=== PATIENT | male | born 1945 | race Caucasian/White ===

== ENCOUNTER → 2024-05-28 12:31 | Outpatient (REF) | payer MEDICARE, OTHER, SELFPAY | LOC: RCS 12:31 | PROVIDERS: ATTENDING PHYSICIAN Internal Medicine Critical Care Medicine; FAMILY PHYSICIAN Family Medicine | DX: R06.02 Shortness of breath (principal) | CPT/HCPCS: 93306 ==

== ENCOUNTER 2024-07-29 19:55 | Inpatient (IN) | payer MEDICARE, OTHER, SELFPAY ==
[2024-07-29] VITALS (7 sets, daily range): BP systolic 102–124; BP diastolic 57–83; BMI 22.5
--- NOTE | 2024-07-29 15:23 | ED.GENMED ---
History of Present Illness
General
Chief Complaint: Breathing Problem
Source: patient
Exam Limitations: none
Time Seen by Provider: 07/29/24 15:06
Nursing documentation reviewed up to this point in time: agreed with
History of Present Illness
History of Present Illness:
Patient to eD with complaint of SOB, worsening cough. Symptoms started 1 week ago and continue to worsen. No home O2. Smoker - reports <1/2ppd. On daily dose of 10mg prednisone. He increased it to 30 mg for the past 3 days without improvement
in symptoms. Unable to lie in bed. Reports weakness, unable to walk even short distances due to SOB. Broought to ED by family for eval. Denies fever/chills, n/v/d.
Past History
Past History
ED Past Medical History: COPD and HTN
ED Past Surgical History: Orthopedic
Social History
Tobacco: Smoker (1/2ppc)
Alcohol: Daily (vodka and water)
Drug: None
Personal:
Review of Systems
Review of Systems
Allergies reviewed?: Yes
All Other Systems: ROS reviewed and negative except as documented in HPI and ROS
Constitutional: Reports fatigue and sleep disturbance
EENT: Reports no symptoms
Respiratory: Reports cough and trouble breathing
Cardiac: Reports no symptoms
ABD/GI: Reports anorexia
: Reports no symptoms
Musculoskeletal: Reports no symptoms
Skin: Reports no symptoms
Neurological: Reports weakness
Psychiatric: Reports no symptoms
Phy Exam
General Physical Exam
General Presentation: moderate distress
General age: appears stated age
General Skin: warm and dry
General Habitus: normal
General Mental: alert
Cardiovascular Exam
Cardiovascular Exam: regular rate/rhythm and no edema
Pulmonary Exam
Pulmonary Exam: chest non tender and decreased breath sounds (MICHAEL)
Oxygen Status: oxygen 2 liters via NC
Cough: coarse cough and hacking cough
Breath Sounds: Wheeze: generalized
Gastrointestinal Exam
Gastrointestinal Exam: normal bowel sounds, non tender and soft
Musculoskeletal Exam
Musculoskeletal Exam: full ROM and neuro vasc intact
Skin Exam
Skin Exam: normal color, warm/dry and no rash
Psychiatric Exam
Psychiatric Exam: normal mood/affect
Scores
Heart Failure Risk
Heart Failure Risk Score: Not Applicable
Course
Orders/Labs/Results
Orders:
Orders
07/29/24 Dinner
Regular
At Your Request: Full Participation
07/29/24 15:20
Dexamethasone Sod Phosphate [Decadron] 10 mg IV NOW STA
Ipratropium/Albuterol Sulfate [Duoneb] 3 ml INH R NOW STA
07/29/24 15:21
CR Chest - 2 Views Urgent
Comment:
Reason For Exam: SOB, cough
07/29/24 15:23
0.9% Sodium Chloride 1000 ml [Nss] 1,000 ml IV BOLUS
07/29/24 16:04
COVID-19 Antigen Urgent
Source: Nasal Swab
Complete Blood Count/With Diff Urgent
Comprehensive Metabolic Panel Urgent
Influenza A+B Rapid Molecular Urgent
ILENE Source: Nasal Swab
Specimen Description:
07/29/24 17:38
CT Chest With Iv Contrast Urgent
Comment:
Reason For Exam: SOB, mass left hilar region
07/29/24 18:48
Cefepime HCl [Maxipime] 2,000 mg IV NOW STA
07/29/24 19:13
Admit/Transfer Patient As Directed
Co-Sign Provider:
Level of Care: Inpatient admission
Assign to:: Medical/Surgical
Physician / Group: hospitalist
Diagnosis: pneumonia,
Reason for Hospitalization: pneumonia
Expected length of stay greater than two midnights?: Yes
ELOS- Estimated Length of Stay in days: 2
I certify the patient meets the requirements for IP care: Yes
Code Status As Directed
Resuscitation Status: Full Code
PRN Pain Medication Management As Directed
May give lesser potent ordered pain med per pt: Yes
preference::
Protocol:: Medication orders for pain may be administered in a
manner that supports deferring to patient preference
when the pt is:
- Requesting an ordered lesser potent pain medication.
Least to most potent pain medications are defined
as: acetaminophen < NSAID < tramadol < opioids
(morphine, oxycodone, hydromorphone).
- Requesting a lesser dose of the same medication IF
ORDERED.
- Requesting a less intrusive route of administration
if both routes are prescribed by the provider (PO <
IV).
07/29/24 20:00
Vitamin B Complex with C [B COMPLEX w/VITAMIN C] 1 caplet PO BID
07/29/24 20:30
Acetaminophen [Tylenol] 650 mg PO Q6HPRN PRN
Docusate Sodium [Colace] 100 mg PO BIDPRN PRN
Guaifenesin/Codeine Solution [Robitussin AC] 5 ml PO Q4HPRN PRN
Ipratropium/Albuterol Sulfate [Duoneb] 3 ml INH R Q4HPRN PRN
Ondansetron Injectable [Zofran] 4 mg IV Q6HPRN PRN
07/29/24 20:30
PULMONARY CONSULT Routine
Consulting Provider: Maurice Jacinto
Was physician already notified: Yes
Reason for consult: left upper lobe pna/post obstructive with new mass
Respiratory Culture/Gram Stain Routine
ILENE Source: Sputum
Specimen Description:
Activity As Directed
Activity Level: Out of Bed-Early Mobility
Intake/ Output As Directed
Frequency: Per unit guidelines
Vital Signs As Directed
Frequency: Per unit guidelines
Weight As Directed
Frequency: Once
Comment: on admission
Pulse Ox/cont/shift [RESP] Routine
Quantity: 1
Smoking Cessation Counseling [RESP] Routine
Pt Eval And Treat Routine
Activity Level: With Assistance
DX Deep Vein Thrombosis Video Routine
07/29/24 20:42
Legionella Urinary Antigen Routine
ILENE Source: Urine
Specimen Description:
07/29/24 22:00
Zinc 50mg (Zinc Sulfate 220mg) [Zinc] 50 mg PO HS
07/30/24 06:00
Basic Metabolic Panel IN AM
Complete Blood Count/No Diff IN AM
07/30/24 08:00
Ascorbic Acid [Vitamin C] 1,000 mg PO BID
Budesonide/Formoterol 160/4.5 [Symbicort 160/4.5 Mcg Inhaler] 2 puff INH R BID
Cefepime HCl [Maxipime] 2,000 mg IV Q12H
Cholecalciferol (Vitamin D3) [VITAMIN D3 (cholecalciferol)] 50 mcg PO DAILY
Nicotine [Nicoderm Transdermal] 21 mg TRANSDERM DAILY
Prednisone [Deltasone] 40 mg PO DAILY
07/30/24 18:00
Enoxaparin Sodium [Lovenox] 40 mg SC QPM
Abnormal Lab Results
07/29/24
16:04
WBC 20.9 H 10^3/uL
(4.8-10.8)
RBC 4.33 L 10^6/uL
(4.70-6.10)
Abs Immat Gran (auto) 0.1 H 10^3/uL
(0-0.05)
Absolute Neuts (auto) 17.9 H 10^3/uL
(1.4-6.5)
Absolute Monos (auto) 1.3 H 10^3/uL
(0.1-0.6)
Immature Gran % 0.6 H %
(0-0.5)
Neutrophils % 85.8 H %
(42.2-75.2)
Lymphocytes % 7.4 L %
(20.5-51.1)
Carbon Dioxide 21 L mmol/L
(22-30)
BUN 51 H mg/dl
(9-20)
Creatinine 1.4 H mg/dL
(0.7-1.3)
Glucose 140 H mg/dl
(70-99)
AST 131 H U/L
(17-59)
ALT 113 H U/L
(0-50)
Alkaline Phosphatase 179 H U/L
(38-126)
07/29/24 16:04
07/29/24 16:04
Vital Signs
Initial and Last Documented VS:
Initial Vital Signs
Temp Pulse Resp BP Pulse Ox
98.4 F 95 20 114/68 92
07/29/24 14:17 07/29/24 14:17 07/29/24 14:17 07/29/24 14:17 07/29/24 14:17
Last Documented Vital Signs
Temp Pulse Resp BP Pulse Ox
98.0 F 87 19 102/60 92
07/29/24 22:40 07/29/24 22:40 07/29/24 22:40 07/29/24 22:40 07/29/24 22:40
*Radiology
Radiology exam reviewed: radiology read reviewed
*Pulse Oximetry
Patient hypoxic: yes
*Critical Care Note
Total Time (30-74mins, 75-104mins- exclusive of procedures): Not Applicable
Update Note
Update Note:
Ct report reviewed. left hilar mass - high concern for carcinoma, pneumonia. Discussed findings with patient. WIll admit to hospitalist. Antibiotics started in dept.
ED Attending Note
-
Portions of this chart may have been created with voice recognition software.� Occasional wrong word or��sound alike� substitutions may have occurred due to the inherent limitations of voice recognition software.
Discharge Plan
Departure
Patient Disposition: Admit
Date of Disposition: 07/29/24
Time of Disposition: 18:47
Presentation/result/management discussed w/ accepting MD/DO: Hospitalist
Patient with high blood pressure during this ER visit?: Yes
Condition: Fair
Covid-19: Not Applicable
Discharge Problem:
Hilar mass, Pneumonia
Interventions
Interventions:
*Risk Screen - Suicide Last Done: 07/29/24 20:44
*General Assessment Last Done: 07/29/24 15:55
*Neglect/Abuse Screening Last Done: 07/29/24 15:55
ED- Fall Risk Assessment Last Done: 07/29/24 15:55
*ED COVID-19 Vaccine History Last Done: 07/29/24 20:44
*Nursing Disposition Last Done: 07/29/24 20:33
ED- Cardiac Assessment Last Done: 07/29/24 15:55
ED- Pulmonary Assessment Last Done: 07/29/24 15:55
Discharge Date and Time
Discharge Date/Time: 07/29/24 20:34
[2024-07-29] MEDS: DUONEB 3 ML INH (15:50)
[2024-07-29] MEDS: NSS 1000 IV (16:12)
[2024-07-29] MEDS: DECADRON 10 MG IV (16:13)
[2024-07-29 16:28] LABS: % Basophils 0.1 % (0-2); % Immature Granulocytes 0.6 % (0-0.5); % Lymphocytes 7.4 % (20.5-51.1); % Monocytes 6.1 % (1.7-9.3); % Neutrophils 85.8 % (42.2-75.2); Absolute Immature Granulocytes 0.1 10^3/uL (0-0.05); Absolute Lymphocytes 1.6 10^3/uL (1.2-3.4); Absolute Monocytes 1.3 10^3/uL (0.1-0.6); Absolute Neutrophils 17.9 10^3/uL (1.4-6.5); Hemoglobin 13.3 g/dL (13.0-18.0); Mean Corp Hgb Conc. 34.1 g/dL (33.0-37.0); Mean Corpuscular Hgb 30.7 pg (27.0-31.0); Mean Corpuscular Volume 90.1 fL (80.0-94.0); Mean Platelet Volume 9.4 fL (7.4-10.4); Nucleated Red Blood Cells % 0 % (-); Platelet Count 340 10^3/uL (130-400); Red Blood Cell Count 4.33 10^6/uL (4.70-6.10); Red Cell Dist. Width 14.1 % (11.5-14.5); White Blood Cell Count 20.9 10^3/uL (4.8-10.8)
[2024-07-29 16:40] LABS: ALT (SGPT) 113 U/L (0-50); AST (SGOT) 131 U/L (17-59); Albumin 3.7 g/dl (3.5-5.0); Alkaline Phosphatase 179 U/L (38-126); Blood Urea Nitrogen 51 mg/dl (9-20); Calcium 9.4 mg/dl (8.4-10.2); Carbon Dioxide 21 mmol/L (22-30); Chloride 102 mmol/L (98-107); Estimated Creatinine Clearance 44 ml/min; Glucose 140 mg/dl (70-99); Sodium 135 mmol/L (135-145); Total Bilirubin 1.1 mg/dl (0.2-1.3); Total Protein 6.3 g/dl (6.3-8.2); eGFR 50.49
[2024-07-29 17:17] LABS: COVID-19 Antigen Negative (Negative)
[2024-07-29] MEDS: MAXIPIME 2000 MG IV (19:01)
--- NOTE | 2024-07-29 19:40 | HPS.HSE ---
Family Physician
-
Family Physician: Mayra Garcia
Chief Complaint
-
cough and shortness of breath.
History of Present Illness
This is an 79-year-old male with past medical history of COPD, hypertension, prior COVID infection who presents to the emergency department with 2 weeks of worsening nonproductive cough and shortness of breath.
Patient reports that he is aspirating and COPD on inhalers at home as well as chronic prednisone 10 mg that was never taper beyond that. He states he has generally been short of breath for a long time but over the last 2 weeks has had significantly
worsening shortness of breath. He tries to have a productive cough but the cough has been nonproductive. Has been no hemoptysis. Reports because wheezing at home. The patient has been on azithromycin for 2 weeks for presumed COPD exacerbation.
He follows with pulmonology (Dr. Mayer) at [facility]. He tells me that he has had a left sided pulmonary nodule since childhood with workup that is been negative. However prior x-ray here in 2007 was negative for any or pulmonary
lesions or nodules. He denies having fevers or chills. He has occasional diarrhea but denies any nausea or vomiting. He denies any lower extremity swelling or calf tenderness. He does note chest pain associated with the cough and he thought he
might of had a rib fracture. Patient reports approximately 70 to 80 pound weight loss over 2 and half months. Reports loss of appetie. He reports night sweats. He continues to smoke approximately half a pack per day and has been over
[id number] smoker.
On arrival in the emergency department the patient was afebrile, blood pressure was 112/75, pulse was 94% on room air. His chest x-ray shows a left upper lobe opacity with left hilar obstructive lesion possible. A CT of the chest shows a 6 cm soft
tissue mass. He has a white count of 20,000, hemoglobin and platelet counts are within normal limits. Chemistry shows a BUN of 51 and a creatinine of 1.4 without priors to compare. Patient had an echocardiogram in May for shortness of breath
which shows a normal EF and possible wall motion changes associated with conduction abnormality.
Medical History
Past Medical History
Past Medical History: Reports COPD and HTN
Past Surgical History: Reports None
Social History
Tobacco: Smoker
Alcohol: None
Drug: None
Personal:
Living: Alone
Employment: Retired
Family History
Family History: Not pertinent
Allergies / Home Medications
Allergies reflects when Allergies were last updated in [employer].
Home Medications with original date entered in [facility]
Allergy/Medication List:
Allergies
Allergy/AdvReac Type Severity Reaction Status Date / Time
Sulfa (Sulfonamide Allergy Swelling Verified 07/29/24 14:17
Antibiotics)
Home Medications
acetylcysteine 600 mg capsule (NAC) 600 mg PO DAILY 07/29/24
albuterol sulfate 90 mcg/actuation aerosol inhaler 2 puff inhalation R Q6HPRN PRN sob 07/29/24
ascorbic acid (vitamin C) 1,000 mg tablet (Vitamin C) 1,000 mg PO BID 07/29/24
azithromycin 250 mg tablet 250 mg PO MOWEFR 07/29/24
cholecalciferol (vitamin D3) 50 mcg (2,000 unit) tablet (Vitamin D3) 50 mcg PO DAILY 07/29/24
fluticasone fur. 200 mcg-umeclid 62.5 mcg-vilant 25 mcg inhalat.powder (Trelegy Ellipta) 1 inh inhalation R DAILY 07/29/24
lisinopril 20 mg-hydrochlorothiazide 12.5 mg tablet 1 tab PO DAILY 07/29/24
naproxen sodium 220 mg tablet (Aleve) 220 mg PO BIDPRN PRN mild pain 07/29/24
potassium 99 mg tablet 400 mg PO DAILY 07/29/24
prednisone 10 mg tablet 10 mg PO DAILY 07/29/24
quercetin 500 mg capsule 500 mg PO DAILY 07/29/24
vitamin B complex 1 tab PO BID 07/29/24
zinc sulfate 50 mg zinc (220 mg) tablet 50 mg PO HS 07/29/24
Review of Systems
-
History Source: Patient
Constitutional: Reports Weight Loss
EENT: Reports No Symptoms
Respiratory: Reports Cough and Trouble Breathing
Cardiac: Reports No Symptoms
Abdomen/GI: Reports No Symptoms
: Reports No Symptoms
Musculoskeletal: Reports No Symptoms
Skin: Reports No Symptoms
Neurological: Reports No Symptoms
Endocrine: Reports No Symptoms
Hematologic/Lymphatic: Reports No Symptoms
Psych: Reports No Symptoms
Physical Exam
Vital Signs
Vital Signs
Temp Pulse Resp BP Pulse Ox
98.4 F 83 26 112/75 94
07/29/24 14:17 07/29/24 19:04 07/29/24 19:04 07/29/24 19:04 07/29/24 19:04
Physical Exam
General: Well Developed, No Apparent Distress, Conversant and Poor Appetite
HEENT: NormoCephalic, Anicteric, Moist mucous membranes and Atraumatic
Respiratory: Rhonchi
Cardiac: S1/S2 and Regular Rhythm
Breast: Deferred by me
GI: Soft, Non Tender, Non Distended and Normal Bowel Sounds
Rectal: Deferred by Provider
Genito-urinary: Deferred by me
Musculoskeletal: No Clubbing, No Cyanosis and No Edema
Skin: Warm
Neuro: AO x 3
Psych: Calm
Laboratory Results
-
07/29/24 16:04
07/29/24 16:04
Laboratory Results
Total Bilirubin 1.1 mg/dl (0.2-1.3) 07/29/24 16:04
AST 131 U/L (17-59) H 07/29/24 16:04
ALT 113 U/L (0-50) H 07/29/24 16:04
Alkaline Phosphatase 179 U/L (38-126) H 07/29/24 16:04
Data Reviewed
-
Diagnostic Radiology: Image Personally Visualized and interpreted
CT Scan: Report Reviewed by me
Lab Data: Labs Reviewed by me
Old Records: Reviewed
Impression/Plan
-
IMPRESSION:
79-year-old with past medical history of tobacco use and COPD on chronic prednisone at home, hypertension who presents emergency department with progressive worsening of a chronic cough, worsening shortness of breath, rhonchi and approximately 70 to
80 pound weight loss in 20/2 months found to have a left upper lobe opacity consistent with postobstructive pneumonia and a possibly new sick centimeters soft tissue mass. He is not requiring supplemental oxygen at this time. He has been afebrile.
White count is elevated at 20,000.
PLAN:
1. PNA - Acute worsenign of chronic cough. MICHAEL opacity. Leukocytosis. No fevers, chills. Cough is mostly non-productive. Ronchi and some coarse wheezing. 2 weeks of oral azithromycin at home.
- admit to med surg
- continue cefepime 2g q 12 given risk factors,
- sputum culture
- legionella urinary ag
- supportive care with cough management and antitussives
- moderate IV resuscitation.
2. COPD - Cough is non-productive. Mild course wheezes. However patient with chronic prednisone use. No oxygen requirement.
- prednisone 40mg daily
- duonebs q4 h prn
- continue trelegy and NAC
3. Pulmonary mass - 6 cm soft tissue mass at the left hilum which is high normal suspicion for carcinoma. There is associated left upper lobe atelectasis and postoperative pneumonia in the left upper lobe.
- Bronchoscopy would be useful for further evaluation.
- pulmonary consultation
4. HTN
- continue lisinpril for now
- hold hctz
5. Renal - Appears slightly prerenal
- s/p IV fluid 1.5 L and reevaluate
- avoid nephrotoxins
- renal dose meds
DVT PPX - lovenox sq
Code Status - Full Code
--- NOTE | 2024-07-29 20:58 | TRANSFER ---
Pt admitted to unit from ED. Pt ambulated with nursing staff to bed. Pt reports SOB for 'a long time' with 'lightheadedness and dizziness.' No oxygen required at this time. AAXO3. VS: Temp 97.8, Pulse 95, BP 113/81, Resp rate 17, and O2 96% on RA.
Pt reports 'occasional diarrhea.' Notified MALORIE Olivas. New orders placed. Pt oriented to room with call jarvis in reach. Plan of care ongoing.
[2024-07-29] MEDS: NSS 250 IV (21:23)
[2024-07-29] MEDS: B COMPLEX w/VITAMIN C 1 CAPLET PO (21:26)
[2024-07-29] MEDS: ZINC 50 MG PO (21:26)
[2024-07-29] MEDS: ROBITUSSIN AC 5 ML PO (21:48)
--- NOTE | 2024-07-29 23:51 | W.PN.UPDATE ---
Update Note
Progress Note Update
late note 07/29/23
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 Denies any fever chills, blood in stool. Will order stool for C-diff to rule out.
[2024-07-30] MEDS: ROBITUSSIN AC 5 ML PO ×3 (01:57→13:37)
[2024-07-30 05:52] VITALS: BMI 22.3
[2024-07-30 07:34] VITALS: BP 128/76
[2024-07-30] MEDS: SPIRIVA RESPIMAT 2.5 MCG 2 PUFF INH (07:56)
[2024-07-30] MEDS: SYMBICORT 160/4.5 MCG INHALER 2 PUFF INH ×2 (07:56→18:39)
[2024-07-30] MEDS: B COMPLEX w/VITAMIN C 1 CAPLET PO ×2 (07:57→20:07)
[2024-07-30] MEDS: VITAMIN D3 (cholecalciferol) 50 MCG PO (07:57)
[2024-07-30] MEDS: VITAMIN C 1000 MG PO ×2 (07:57→20:07)
[2024-07-30] MEDS: DELTASONE 40 MG PO (07:57)
[2024-07-30] MEDS: STERILE WATER FOR INJECTION 10 ML IV ×2 (07:59→20:07)
[2024-07-30] MEDS: MAXIPIME 2000 MG IV ×2 (07:59→20:07)
[2024-07-30 08:01] LABS: Hematocrit 34.9 % (39.0-52.0); Mean Corp Hgb Conc. 34.4 g/dL (33.0-37.0); Mean Corpuscular Hgb 31.3 pg (27.0-31.0); Mean Corpuscular Volume 90.9 fL (80.0-94.0); Mean Platelet Volume 9.5 fL (7.4-10.4); Platelet Count 282 10^3/uL (130-400); Red Blood Cell Count 3.84 10^6/uL (4.70-6.10); Red Cell Dist. Width 14.1 % (11.5-14.5); White Blood Cell Count 11.6 10^3/uL (4.8-10.8)
--- NOTE | 2024-07-30 08:17 | PHA.VAN.IN ---
Assessment
- Assessment
Renal Function: Unknown baseline (SCR trending down 1.4-->1.2)
Concomitant Antimicrobials: cefepime
Plan
- Plan
Initial / Loading Dose: 2000mg - administration pending
Maintenance Regimen: dosing by level
Monitoring: random 07/31 0600
MRSA Screen: Ordered per protocol
Pharmacokinetics Vancomycin I
- -
Patient Age: 79
Patient Sex: Male
Vancomycin Day #: 1
Indication: Pulmonary/Respiratory
Requesting Provider: Dr. Glover
Pertinent Antimicrobial Allergies:
sulfonamide antibiotics - swelling
Height / Weight:
Height 5 ft 11 in
Actual Weight 72.631 kg
- Vital Signs / Lab Results
Temp Pulse Resp BP Pulse Ox
97.4 F 81 16 128/76 97
07/30/24 07:34 07/30/24 07:59 07/30/24 07:59 07/30/24 07:34 07/30/24 07:59
Lab Results - Hematology
07/29/24 07/30/24
16:04 07:38
WBC 20.9 H 11.6 H
Lab Results - Chemistry
07/29/24
16:04
BUN 51 H
Creatinine 1.4 H
Estimated Creat Clear 44
Albumin 3.7
Microbiology Results
07/29/24 16:04 Influenza Types A & B (INGRID) - Final
Nasal Swab Negative for Influenza A & B, NAAT
Negative results must be combined with clinical observations
and patient history.
Nucleic Acid Amplification test (NAAT)performed on the
[facility] platform.
[2024-07-30 08:35] LABS: Blood Urea Nitrogen 47 mg/dl (9-20); Calcium 8.7 mg/dl (8.4-10.2); Carbon Dioxide 20 mmol/L (22-30); Chloride 107 mmol/L (98-107); Estimated Creatinine Clearance 50 ml/min; Glucose 156 mg/dl (70-99); Sodium 137 mmol/L (135-145); eGFR > 60.00
--- NOTE | 2024-07-30 08:56 | W.PN.HOSP.TC ---
Today's Communication/Plan
-
See PN
Assessment / Plan
Assessment / Plan
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
A/P:
#L hilar mass
#Postobstructive pneumonia
#Acute COPD exacerbation, emphysema
No hypoxia
Taper steroids and cont bronchodilators
Pulm consult
Cefepime/Vanoc
MRSA screen
Sputum Cx
#Transaminitis
#Elevated alk.phos
No abd pain
CHeck hepatitis panel
follow LFT
US RUQ
#Elevated Cr on admission
unclear baseline
improving off diuretics
follow BMP
#L renal cyst
no further workup advised
#Nicotine dependency
Counselled on cessation
Nicoderm
#essential HTN
titrate antihypertensives to target normotension
DVT ppx hep
FUll code
I have spent at least 59min reviewing chart, test results, communication with consultants and direct patient care
Anticipated Discharge: 24 - 48 hours
Subjective/Interval History
-
Date of Service: July 30, 2024
Objective Data
-
Labs:
Laboratory Results
07/30/24
07:38
WBC 11.6 H
Hgb 12.0 L
Hct 34.9 L
Plt Count 282
Sodium 137
Potassium 5.0
Chloride 107
Carbon Dioxide 20 L
BUN 47 H
Creatinine 1.2
Glucose 156 H
Calcium 8.7
Vital Signs:
Vital Signs
Temp Pulse Resp BP Pulse Ox
97.4 F 81 16 128/76 97
07/30/24 07:34 07/30/24 07:59 07/30/24 07:59 07/30/24 07:34 07/30/24 08:41
I&O
07/29/24 07/30/24 07/31/24
06:59 06:59 06:59
Intake Total 730 / 730
Balance 730 / 730
Review of Systems
-
History Source: Patient
All other systems: Reviewed and negative
Respiratory: Reports Wheezing
Physical Exam
-
General: No Apparent Distress
HEENT: Normocephalic
Respiratory: Wheezes
Cardiac: Regular Rhythm
GI: Soft, Nontender and Nondistended
Musculoskeletal: No Clubbing, No Cyanosis and No Edema
Skin: Warm
Neuro: Awake, Alert, Oriented and AO x 3
Psych: Calm
--- NOTE | 2024-07-30 09:27 | CON.PUL ---
Consultation
Consultation Request
Date/Time Consultation Requested: 07/29/2024 - 2029
Date/Time Consultation Performed: 07/30/2024917
Requesting Provider: Dr. Penn
Performing Provider: Dr. Davis
Reason for Consultation: Abnormal chest CT/Left hilar mass/COPD
Medical History
-
Chief Complaint: Cough + OLEARY
History of Present Illness:
79-year-old male active smoker (0.5 PPD with >15-mmog-whct history) with a past medical history of COPD/emphysema, chronic bronchitis, history of COVID-19, history of right-sided pneumothorax and colonic polyps who presents with cough and shortness
of breath with activity x 1 week. Patient is not on home oxygen. Patient felt that he was aspirating and says that his cough has been productive. No blood seen in his phlegm but he says he has been wheezing at home. No fevers or chills. He has
had about 70-80 pound weight loss over the last 2-1/2 months with loss of appetite and night sweats. In the ER he was afebrile to 98.4 �F, pulse rate 95, breathing at 20 breaths/min, BP 114/68 and saturating 92% on room air. Labs showed
leukocytosis to 20.9, Hb 13.3, creatinine 1.4, LFTs slightly elevated with AST 131, ALT 113 and ALP 179. COVID antigen negative. Flu A/B swab also negative. CXR shows parenchymal airspace lesion in the left upper lobe, and CT chest with IV
contrast showed a 6 cm soft tissue mass at the left hilum with atelectasis and postobstructive pneumonia. There is no mediastinal or right hilar lymphadenopathy and there was moderate emphysematous changes throughout both lungs. He was given
cefepime in the ER + Decadron, DuoNebs and IVF with NS 0.9% x 1 L. He was admitted to the hospitalist service and now pulmonary consulted for additional management/recommendations.
When I saw the patient he was laying in bed, resting in no acute distress. He says that he still has a dry cough. He is on room air breathing comfortably. He is eager to go home. He understands that his left upper lobe abnormality is concerning
for cancer. He also understands that he needs to stop smoking. He currently denies chest pain, PURVIS, abdominal pain, nausea, fevers or chills.
Of note, patient follows with us in the office with Dr. Bailey. Last office visit on 06/09/2024. For his COPD he is maintained on Trelegy 200mcg + prednisone 10mg daily (been on steroids for years). A VQ scan was ordered for him with plan for
repeat CT chest in July 2024, and he was also going to be arranged for pulmonary rehab. He was started on Zithromax 250 mg TIW his last full PFTs were on 04/27/2024 showing severe COPD with normal lung volumes and very severe gas exchange
capacity defect (DLco: 25%; DLco/VA: 29%). He previously used to see Dr. Mayer with [facility]. He has had multiple CT chest to exam since 2020, with multiple pulmonary nodules. Appears that his last CT chest done at [facility] in
October 2023 showed severe centrilobular emphysema with a stable left upper lobe 5 mm nodule, stable 7 mm juxtapleural right upper lobe posterolateral nodule, and interval decrease in size of superior segment of right lower lobe nodule measuring 11
mm which was previously 24 mm. This was compared to prior imaging in June 2022. He was previously on Trelegy 100mcg for COPD.
PMHx: COPD/emphysema, history of COVID-19 (12/2021), history of R-sided pneumothorax requiring chest tube, tobacco use disorder, colonic polyps, chronic bronchitis, migraine headaches
PSHx: Back surgery
Past Medical History
Past Medical History: Other (Above as per HPI)
Past Surgical History: Other (Above as per HPI)
Social History
Tobacco: Smoker (Actively smoking 0.5PPD with >91-queh-ycpc history)
Alcohol: Occasional
Drug: None
Environmental Exposures: Has a dog
Family History
Family History: Cancer (Brother: Lung cancer) and Other (Father: Emphysema)
Allergies / Home Medications
Allergies
Allergy/AdvReac Type Severity Reaction Status Date / Time
Sulfa (Sulfonamide Allergy Swelling Verified 07/29/24 14:17
Antibiotics)
Home Medications
�Medication �Instructions �Recorded �Confirmed �Last Taken �Type
acetylcysteine 600 mg capsule (NAC) 600 mg PO DAILY Liver Issues 07/29/24 07/29/24 07/29/24 History
albuterol sulfate 90 mcg/actuation 2 puff inhalation R Q6HPRN PRN sob 07/29/24 07/29/24 07/29/24 History
aerosol inhaler
ascorbic acid (vitamin C) 1,000 mg 1,000 mg PO BID Supplement 07/29/24 07/29/24 07/29/24 History
tablet (Vitamin C)
azithromycin 250 mg tablet 250 mg PO MOWEFR Infection 07/29/24 07/29/24 07/29/24 History
cholecalciferol (vitamin D3) 50 50 mcg PO DAILY Supplement 07/29/24 07/29/24 07/29/24 History
mcg (2,000 unit) tablet (Vitamin
D3)
fluticasone fur. 200 mcg-umeclid 1 inh inhalation R DAILY 07/29/24 07/29/24 07/29/24 History
62.5 mcg-vilant 25 mcg Lung/Breathing Issues
inhalat.powder (Trelegy Ellipta)
lisinopril 20 1 tab PO DAILY Blood Pressure 07/29/24 07/29/24 07/29/24 History
mg-hydrochlorothiazide 12.5 mg
tablet
naproxen sodium 220 mg tablet 220 mg PO BIDPRN PRN mild pain 07/29/24 07/29/24 Unknown History
(Aleve)
potassium 99 mg tablet 400 mg PO DAILY Electrolyte 07/29/24 07/29/24 07/29/24 History
Repletion
prednisone 10 mg tablet 10 mg PO DAILY Anti-Inflammatory 07/29/24 07/29/24 07/29/24 History
quercetin 500 mg capsule 500 mg PO DAILY Supplement 07/29/24 07/29/24 07/29/24 History
vitamin B complex 1 tab PO BID Supplement 07/29/24 07/29/24 07/29/24 History
zinc sulfate 50 mg zinc (220 mg) 50 mg PO HS Supplement 07/29/24 07/29/24 07/28/24 History
tablet
Review of Systems
-
History Source: Patient
All other systems: Negative unless noted
Vitals / Labs / Diagnostic Testing
Vital Signs
Temp Pulse Resp BP Pulse Ox
97.4 F 81 16 128/76 96
07/30/24 07:34 07/30/24 07:59 07/30/24 07:59 07/30/24 07:34 07/30/24 09:49
Lab Data
07/30/24 07:38
07/30/24 07:38
Microbiology
07/29/24 20:42 Urine Legionella Urinary Antigen - Final
Negative for Legionella pneumophila Serogroup 1 antigen.
A negative result does not rule out the possiblity of
Legionella infection due to other serogroups or species of
Legionella. Clinical correlation is recommended.
07/29/24 16:04 Nasal Swab Influenza Types A & B (INGRID) - Final
Negative for Influenza A & B, NAAT
Negative results must be combined with clinical observations
and patient history.
Nucleic Acid Amplification test (NAAT)performed on the
[employer] platform.
Diagnostic Testing:
Physical Exam
-
HEENT: Normocephalic, Anicteric and Moist Mucous Membranes
Cardiovascular: S1/S2, Peripheral Edema (negative) and Other (Distant heart sound)
Respiratory: Wheeze (negative), Rhonchi (negative), Non-Labored Respirations and Other (Coarse breath sounds heard bilaterally)
GI: Soft, Non Distended, Non Tender and Normal Bowel Sounds
Neurology: AO x 3 and Tremors (negative)
Skin: Warm and Dry
General: Respiratory Distress (negative), Comfortable, Chills (negative) and Sweats (negative)
Assessment
-
Assessment: 79-year-old male active smoker (0.5 PPD with >94-onya-vikv history) with a past medical history of COPD/emphysema, chronic bronchitis, history of COVID-19, history of right-sided pneumothorax and colonic polyps who presents with cough
and shortness of breath with activity x 1 week. Patient is not on home oxygen. Patient felt that he was aspirating and says that his cough has been productive. No blood seen in his phlegm but he says he has been wheezing at home. No fevers or
chills. He has had about 70-80 pound weight loss over the last 2-1/2 months with loss of appetite and night sweats. In the ER he was afebrile to 98.4 �F, pulse rate 95, breathing at 20 breaths/min, BP 114/68 and saturating 92% on room air. Labs
showed leukocytosis to 20.9, Hb 13.3, creatinine 1.4, LFTs slightly elevated with AST 131, ALT 113 and ALP 179. COVID antigen negative. Flu A/B swab also negative. CXR shows parenchymal airspace lesion in the left upper lobe, and CT chest with IV
contrast showed a 6 cm soft tissue mass at the left hilum with atelectasis and postobstructive pneumonia. There is no mediastinal or right hilar lymphadenopathy and there was moderate emphysematous changes throughout both lungs. He was given
cefepime in the ER + Decadron, DuoNebs and IVF with NS 0.9% x 1 L. He was admitted to the hospitalist service and now pulmonary consulted for additional management/recommendations.
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
Impression:
#Left suprahilar mass with suspected lung cancer with post-obstructive pneumonia + atelectasis
#Severe COPD with acute exacerbation (on Trelegy 200mcg + chronic prednisone 10 mg daily at home)
#Unintentional weight loss + night sweats concerning for underlying malignancy (given abnormal CT chest, concern for primary bronchogenic carcinoma)
#Leukocytosis likely due to sepsis without shock due to above
#Anemia
#Acute kidney injury
#Transaminitis
#Hx of multiple pulmonary nodules
#Hx of right sided empyema vs abscess
#Hx of right sided pneumothorax requiring chest tube
Plan:
- I will arrange for bronchoscopy with airway survey and possible endobronchial biopsy with transbronchial biopsy and BAL; may need to use the EBUS�FNA to obtain better samples
- No other abnormal lymph nodes seen on CT chest
- He wishes to leave the hospital (amenable for discharge, does not want to leave AMA) and get this done as an outpatient - I will arrange to get this done this upcoming Saturday (08/03/2024)
- Continue with antibiotics and follow-up sputum culture (NGTD)
- Currently on vanc/cefepime
- Check MRSA swab --> if negative then DC IV vanco
- Check strep PNA urine antigen
- Continue symbicort + spiriva, and once ready fro DC home, resume home trelegy 200mcg
- prn nebulized bronchodilators for breakthrough symptoms
- Continue prednisone taper - reduce by 10mg every 4th day until back at his home dose of 10mg daily
- Nicotine patch; strongly encouraged to stop smoking given the risk of not only cardiovascular disease but also malignancy
- Maintain SpO2 88-95% with supplemental O2 as needed
- Check ambulatory pulse oximetry prior to discharge
- Incentive spirometer encouraged
- trend LFTs; abd US pending by primary team
- Trend sCr and monitor UOP
- Monitor CBC and transfuse if needed to keep Hb>7, plt>20k
- Mucolytics with acapella; start Mucinex
- Replete electrolytes with K>4, Mg>2
- Maintain euglycemia with goal BG >100 and <180
- DVT ppx: HSQ
Pulmonary service will continue to follow along. As long as ambulatory pulse oximetry is done prior to discharge, I am okay with patient being discharged home from my pulmonary perspective and we will arrange for outpatient bronchoscopy likely this
upcoming Saturday for evaluation into left suprahilar mass. We ultimately will have the patient follow-up with our office again with Dr. Bailey, as last office visit on 06/09/2024.
Data:
CT chest with IV contrast 07/29/2024:
1.). There is an approximately 6 cm soft tissue mass at the left hilum which is high normal suspicion for carcinoma.
There is associated left upper lobe atelectasis and postoperative pneumonia in the left upper lobe.
Bronchoscopy would be useful for further evaluation.
2). There is no mediastinal or right hilar lymphadenopathy
3). Moderate emphysematous changes are present throughout both lungs
4). Atherosclerosis
Total time spent today was 75 minutes for this encounter. Time includes reviewing laboratory test/imaging results, reviewing pertinent medical records, obtaining and reviewing medical history, performing an appropriate exam, ordering medications,
tests and procedures. Time also includes documentation of this encounter, coordinating patient care and communicating with other healthcare professionals. Total time does not include separately billed tests performed on this date of service.
[2024-07-30 10:40] LABS: ALT (SGPT) 72 U/L (0-50); AST (SGOT) 41 U/L (17-59); Albumin 2.9 g/dl (3.5-5.0); Alkaline Phosphatase 122 U/L (38-126); Direct Bilirubin 0.2 mg/dl (0.0-0.4); GGTP 96 U/L (15-73); Total Bilirubin 0.6 mg/dl (0.2-1.3); Total Protein 5.4 g/dl (6.3-8.2)
[2024-07-30] MEDS: VANCOCIN 540 MG IV (10:45)
[2024-07-30] MEDS: HEPARIN 5000 UNITS SC ×3 (10:45→23:07)
[2024-07-30 12:00] VITALS: O2SAT 88; O2SAT 97
--- NOTE | 2024-07-30 12:38 | CM ---
geothermal plant manager reviewed patient's chart and met with patient and patient lives in a 1 story home, patient is independent with adl's and ambulation, no dme, patient drives, home when stable no needs.
[facility]acy: [facility]
PCP: Dr. Garcia
Plan; Home no needs when stable.
[2024-07-30 14:06] LABS: Hepatitis B Surface Antigen Negative (Negative)
[2024-07-30 14:24] LABS: Hepatitis B Core Ab, Total Negative (Negative); Hepatitis B Surface Antibody Negative; Hepatitis C Antibody Negative (Negative)
[2024-07-30 15:35] VITALS: BP 104/57
[2024-07-30 17:39] VITALS: BMI 22.3
[2024-07-30] MEDS: MUCINEX 600 MG PO (20:07)
[2024-07-30] MEDS: ZINC 50 MG PO (21:21)
[2024-07-30 23:54] VITALS: BP 120/73
[2024-07-31 07:00] VITALS: BP 139/80
[2024-07-31 07:15] LABS: % Basophils 0.1 % (0-2); % Immature Granulocytes 0.7 % (0-0.5); % Lymphocytes 14.3 % (20.5-51.1); % Monocytes 5.4 % (1.7-9.3); % Neutrophils 79.5 % (42.2-75.2); Absolute Immature Granulocytes 0.1 10^3/uL (0-0.05); Absolute Lymphocytes 2.3 10^3/uL (1.2-3.4); Absolute Monocytes 0.9 10^3/uL (0.1-0.6); Absolute Neutrophils 12.7 10^3/uL (1.4-6.5); Hematocrit 34.3 % (39.0-52.0); Hemoglobin 11.6 g/dL (13.0-18.0); Mean Corp Hgb Conc. 33.8 g/dL (33.0-37.0); Mean Corpuscular Hgb 31.2 pg (27.0-31.0); Mean Corpuscular Volume 92.2 fL (80.0-94.0); Mean Platelet Volume 9.7 fL (7.4-10.4); Nucleated Red Blood Cells % 0 % (-); Platelet Count 317 10^3/uL (130-400); Red Blood Cell Count 3.72 10^6/uL (4.70-6.10); Red Cell Dist. Width 14.2 % (11.5-14.5)
[2024-07-31 07:39] LABS: Vancomycin Random 12.9 ug/ml
[2024-07-31] MEDS: SYMBICORT 160/4.5 MCG INHALER 2 PUFF INH (07:52)
[2024-07-31] MEDS: ProAIR HFA INHALER 2 PUFF INH (07:52)
[2024-07-31] MEDS: SPIRIVA RESPIMAT 2.5 MCG 2 PUFF INH (07:52)
[2024-07-31 08:00] LABS: ALT (SGPT) 61 U/L (0-50); AST (SGOT) 36 U/L (17-59); Albumin 2.9 g/dl (3.5-5.0); Alkaline Phosphatase 106 U/L (38-126); Blood Urea Nitrogen 53 mg/dl (9-20); Calcium 8.9 mg/dl (8.4-10.2); Carbon Dioxide 21 mmol/L (22-30); Chloride 108 mmol/L (98-107); Creatine Phosphokinase 31 U/L (55-170); Estimated Creatinine Clearance 43 ml/min; Glucose 106 mg/dl (70-99); Potassium 5.1 mmol/L (3.5-5.1); Sodium 140 mmol/L (135-145); Total Bilirubin 0.4 mg/dl (0.2-1.3); Total Protein 5.3 g/dl (6.3-8.2); eGFR 50.49
[2024-07-31] MEDS: VITAMIN D3 (cholecalciferol) 50 MCG PO (09:26)
[2024-07-31] MEDS: B COMPLEX w/VITAMIN C 1 CAPLET PO (09:27)
[2024-07-31] MEDS: HEPARIN 5000 UNITS SC (09:28)
[2024-07-31] MEDS: VITAMIN C 1000 MG PO (09:28)
[2024-07-31] MEDS: MUCINEX 600 MG PO (09:36)
[2024-07-31] MEDS: MAXIPIME 2000 MG IV (09:36)
[2024-07-31] MEDS: FLUSH (NSS) 2 FLUSH IV (09:37)
[2024-07-31] MEDS: STERILE WATER FOR INJECTION 10 ML IV (09:37)
--- NOTE | 2024-07-31 09:41 | W.PN.PUL3 ---
Today's Communication / Plan
-
Antibiotics
Home O2 assessment shows he does not need O2 upon discharge
Symbicort + Spiriva and resume Trelegy upon discharge
DuoNebs prn
Patient is stable and being prepared for discharge home. Outpatient bronchoscopy will be arranged for this upcoming Saturday (08/03/2024) for workup of left upper lobe consolidation/6cm mass with cutoff of left upper lobe bronchus and severe narrowing
of the MICHAEL pulmonary artery with concern for primary bronchogenic carcinoma. Pulmonary service will now sign off. Please reconsult if there are any additional questions/concerns, or if patient's respiratory status deteriorates. Advised to
follow-up with our office with Dr. Bailey
Assessment
-
Assessment: 79-year-old male active smoker (0.5 PPD with >99-ulap-drrd history) with a past medical history of COPD/emphysema, chronic bronchitis, history of COVID-19, history of right-sided pneumothorax and colonic polyps who presents with cough
and shortness of breath with activity x 1 week. Patient is not on home oxygen. Patient felt that he was aspirating and says that his cough has been productive. No blood seen in his phlegm but he says he has been wheezing at home. No fevers or
chills. He has had about 70-80 pound weight loss over the last 2-1/2 months with loss of appetite and night sweats. In the ER he was afebrile to 98.4 �F, pulse rate 95, breathing at 20 breaths/min, BP 114/68 and saturating 92% on room air. Labs
showed leukocytosis to 20.9, Hb 13.3, creatinine 1.4, LFTs slightly elevated with AST 131, ALT 113 and ALP 179. COVID antigen negative. Flu A/B swab also negative. CXR shows parenchymal airspace lesion in the left upper lobe, and CT chest with IV
contrast showed a 6 cm soft tissue mass at the left hilum with atelectasis and postobstructive pneumonia. There is no mediastinal or right hilar lymphadenopathy and there was moderate emphysematous changes throughout both lungs. He was given
cefepime in the ER + Decadron, DuoNebs and IVF with NS 0.9% x 1 L. He was admitted to the hospitalist service and now pulmonary consulted for additional management/recommendations.
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
Impression:
#Left suprahilar mass + severe narrowing of MICHAEL pulmonary artery with suspected lung cancer with post-obstructive pneumonia + atelectasis
#Severe COPD/emphysema with acute exacerbation (on Trelegy 200mcg + chronic prednisone 10 mg daily at home)
#Unintentional weight loss + night sweats concerning for underlying malignancy (given abnormal CT chest, concern for primary bronchogenic carcinoma)
#Leukocytosis likely due to sepsis without shock due to above
#Anemia
#Acute kidney injury
#Transaminitis
#Hx of multiple pulmonary nodules
#Hx of right sided empyema vs abscess
#Hx of right sided pneumothorax requiring chest tube
Plan:
- I will arrange for bronchoscopy with airway survey and possible endobronchial biopsy with transbronchial biopsy and BAL; may need to use the EBUS�FNA to obtain better samples
- No other abnormal lymph nodes seen on CT chest
- Because he is stable, he will be discharged home today and we will perform bronchoscopy this upcoming Saturday (08/03/2024)
- Continue with antibiotics and follow-up sputum culture (NGTD)
- Currently on cefepime --> being DC'd felton reena cefdinir and doxy to complete 7 day course
- MRSA swab negative --> DC IV vanco
- Strep PNA and legionella both negative
- Continue symbicort + spiriva, and resume home trelegy 200mcg upon discharge
- prn nebulized bronchodilators for breakthrough symptoms
- Continue prednisone taper - reduce by 10mg every 4th day until back at his home dose of 10mg daily
- Nicotine patch; strongly encouraged to stop smoking given the risk of not only cardiovascular disease but also malignancy
- Maintain SpO2 88-95% with supplemental O2 as needed
- Check ambulatory pulse oximetry prior to discharge --> performed today with nolvia SpO2 91% after walking 100 feet. No need for home O2.
- Incentive spirometer encouraged
- trend LFTs; abd US pending by primary team --> gallbladder appears normal with no evidence of biliary ductal dilation. CBD also normal at 2.6 mm. Main portal vein is patent. Spleen appears normal.
- Trend sCr and monitor UOP
- Monitor CBC and transfuse if needed to keep Hb>7, plt>20k
- Mucolytics with acapella; start Mucinex
- Replete electrolytes with K>4, Mg>2
- Maintain euglycemia with goal BG >100 and <180
- DVT ppx: HSQ
Patient is stable and being prepared for discharge home. Outpatient bronchoscopy will be arranged for this upcoming Saturday (08/03/2024) for workup of left upper lobe consolidation/6cm mass with cutoff of left upper lobe bronchus and severe narrowing
of the MICHAEL pulmonary artery with concern for primary bronchogenic carcinoma. Pulmonary service will now sign off. Thank you for allowing us to be involved in the care of this patient. Please reconsult if there are any additional
questions/concerns, or if patient's respiratory status deteriorates. Advised to follow-up with our office with Dr. Bailey
Data:
CT chest with IV contrast 07/29/2024:
1.). There is an approximately 6 cm soft tissue mass at the left hilum which is high normal suspicion for carcinoma.
There is associated left upper lobe atelectasis and postoperative pneumonia in the left upper lobe.
Bronchoscopy would be useful for further evaluation.
2). There is no mediastinal or right hilar lymphadenopathy
3). Moderate emphysematous changes are present throughout both lungs
4). Atherosclerosis
Abd US 07/31/2024:
Normal appearance of the gallbladder with no evidence for biliary ductal dilation. Normal appearance of the liver.
The pancreas is unable to be visualized, with shadowing from overlying bowel gas.
2 simple cysts arising from the left kidney.
Total time spent today was 35 minutes for this encounter. Time includes reviewing laboratory test/imaging results, reviewing pertinent medical records, obtaining and reviewing medical history, performing an appropriate exam, ordering medications,
tests and procedures. Time also includes documentation of this encounter, coordinating patient care and communicating with other healthcare professionals. Total time does not include separately billed tests performed on this date of service.
Subjective Data
-
Date of Service:
Date of Service: July 31, 2024
Chief Complaint: Pulmonary Follow Up
Subjective:
Patient was seen and evaluated today at bedside. Saturating 98% on room air. No acute events reported from overnight. LFTs are improving today. He feels well and is eager to be discharged home. Sputum culture shows NGTD. He denies abdominal
pain, worsening SOB, PURVIS, fevers or chills.
Review of Systems
General: Other (Negative unless mentioned above)
Objective Data
Data Reviewed
Vital Signs / I&O / Oxygen:
Vital Signs
Temp Pulse Resp BP Pulse Ox
97.9 F 71 18 139/80 94
07/31/24 07:00 07/31/24 07:55 07/31/24 07:55 07/31/24 07:00 07/31/24 07:55
Intake and Output
07/30/24 07/31/24 08/01/24
06:59 06:59 06:59
Intake Total 730 / 730 900 / 900
Balance 730 / 730 900 / 900
SaO2 94
Nasal Cannula flow liters per 2
minute
Physical Exam
General: Respiratory Distress (negative), Comfortable, Chills (negative) and Sweats (negative)
HEENT: Normocephalic and Anicteric
Cardiovascular: S1-S2, Peripheral Edema (negative) and Other (Distant heart sounds)
Respiratory: Wheeze (negative), Rhonchi (negative) and Other (Coarse breath sounds heard bilaterally)
GI: Soft, Non Distended, Non Tender and Normal Bowel Sounds
Neurology: AO x 3 and Tremors (negative)
Skin: Warm, Dry, Cyanosis (negative) and Jaundice (negative)
Labs/Micro/Reports
Lab Data
07/31/24 06:33
07/31/24 06:33
Microbiology
07/30/24 01:02 Sputum Respiratory Culture - Preliminary
Usual Respiratory Fadumo
07/30/24 01:02 Sputum Gram Stain - Preliminary
07/30/24 21:05 Urine Streptococcus pneumoniae Antigen (M - Final
Negative for Streptococcus pneumoniae antigen.
A negative result does not exclude infection with
Streptococcus pneumoniae. Clinical correlation is
recommended.
07/30/24 16:17 Nose Nasal Screen MRSA (PCR) - Final
MRSA not detected - performed by PCR methodology.
07/29/24 20:42 Urine Legionella Urinary Antigen - Final
Negative for Legionella pneumophila Serogroup 1 antigen.
A negative result does not rule out the possiblity of
Legionella infection due to other serogroups or species of
Legionella. Clinical correlation is recommended.
07/29/24 16:04 Nasal Swab Influenza Types A & B (INGRID) - Final
Negative for Influenza A & B, NAAT
Negative results must be combined with clinical observations
and patient history.
Nucleic Acid Amplification test (NAAT)performed on the
[employer] platform.
[2024-07-31] MEDS: DELTASONE 40 MG PO (10:41)
--- NOTE | 2024-07-31 11:08 | W.PN.HOSP.TC ---
Addendum entered and electronically signed by Karl Glover MD 07/31/24 11:57:
#Steroids-induced leukocytosis
Original Note:
Today's Communication/Plan
-
dc
Assessment / Plan
Assessment / Plan
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 Was not hypoxic so did not need any O2. SputumCx with oral efraín, no new fevers.
Leukocytosis 2/2 Prednisone use. Reasonable for outpatient Abx course. Mask Former will arrange outpatient EBUS-FNA on 08/03/24. US liver WNL. counselled to stop smoking and alcohol. Referral to skip load driver provided. Patient instructed to follow
BP at home since BP meds stopped due to elevated creatinine. BP remained in acceptable level on the d/c day.
Medically stable for d/c home
A/P:
#L hilar mass
#Postobstructive pneumonia
#Acute COPD exacerbation, emphysema
No hypoxia
Taper steroids and cont bronchodilators
Pulm consult
Cefepime/Vanoc
MRSA screen
Sputum Cx
#Transaminitis 2/2 daily alcohol use without abuse
#Elevated alk.phos
No abd pain
hepatitis panel neg
follow LFT
US RUQ WNL
#Elevated Cr, most likely CKD stage 3a
Outpatient follow up with PCP and skip load driver
unclear baseline
improving off diuretics and ACEi, BP tolerating well - cont to follow as outaptient
follow BMP
#L renal cyst
no further workup advised
#Nicotine dependency
Counselled on cessation
Nicoderm
#essential HTN
titrate antihypertensives to target normotension
DVT ppx hep
Full code
I have spent at least 59min reviewing chart, test results, communication with consultants and direct patient care
Anticipated Discharge: Today
Subjective/Interval History
-
Date of Service: July 31, 2024
Objective Data
-
Labs:
Laboratory Results
07/31/24
06:33
WBC 16.0 H
Hgb 11.6 L
Hct 34.3 L
Plt Count 317
Sodium 140
Potassium 5.1
Chloride 108 H
Carbon Dioxide 21 L
BUN 53 H
Creatinine 1.4 H
Glucose 106 H
Calcium 8.9
Total Bilirubin 0.4
AST 36
ALT 61 H
Alkaline Phosphatase 106
Vital Signs:
Vital Signs
Temp Pulse Resp BP Pulse Ox
97.9 F 71 18 139/80 94
07/31/24 07:00 07/31/24 07:55 07/31/24 07:55 07/31/24 07:00 07/31/24 07:55
I&O
07/30/24 07/31/24 08/01/24
06:59 06:59 06:59
Intake Total 730 / 730 900 / 900
Balance 730 / 730 900 / 900
Review of Systems
-
History Source: Patient
All other systems: Reviewed and negative
Physical Exam
-
General: No Apparent Distress
HEENT: Normocephalic
Respiratory: Wheezes and Rales
Cardiac: Regular Rhythm
GI: Soft, Nontender and Nondistended
Musculoskeletal: No Clubbing, No Cyanosis and No Edema
Skin: Warm
Neuro: Awake, Alert, Oriented and AO x 3
Psych: Calm
--- NOTE | 2024-07-31 11:12 | CM ---
Home no needs.
Plan; Discharge today.
--- NOTE | 2024-07-31 11:17 | W.DCSUMMARY ---
Discharge Summary
Discharge Data
Date of Admission: 07/29/24
Date of Discharge: 07/31/24
-
Pending Results: No
Hospital Course
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 Was not hypoxic so did not need any O2. SputumCx with oral efraín, MRSA neg,
legionella and Strep. pneumonia urine Ag neg, no new fevers. Leukocytosis 2/2 Prednisone use. Reasonable for outpatient Abx course. [facility] will arrange outpatient EBUS-FNA on 08/03/24. US liver WNL. counselled to stop smoking and alcohol.
Referral to neurology tech provided. Patient instructed to follow BP at home since BP meds stopped due to elevated creatinine. BP remained in acceptable level on the d/c day.
Medically stable for d/c home
I have spent at least 38min preparing d/c
Patient was managed for:
#L hilar mass
#Postobstructive pneumonia
#Acute COPD exacerbation, emphysema
#Elevated Cr, most likely CKD stage 3a
#L renal cyst
#Nicotine dependency
#essential HTN
Discharge Plan
-
Patient Disposition: Home (Routine Discharge)
Discharge Diagnosis/Procedures: pneumonia, lung mass
Diet: Regular
Activity: As tolerated
Driving Restrictions: As prior to admission
Activity Restrictions/Additional Instructions:
[facility] office will contact you to schedule bronchoscopy upcoming Saturday08/03/24
Schedule appointment with neurology tech
Referrals:
Farooq Bailey MD [Active] - 09/15/24 12:00 pm
Mayra Garcia DO [Family Provider] -
Valerie Perez MD [Active] - in three to four weeks
Additional Discharge Medication Instructions: Blood pressure medications stopped due to elevated creatinine - kidney impairment. Measure BP flakita;ly and follow with PCP for further adjustment
Prescriptions:
New
prednisone 20 mg Tablet
20 mg PO DAILY Qty: 3 0RF
albuterol sulfate 90 mcg/actuation Hfa Aerosol Inhaler
2 puff inhalation R Q6HPRN PRN (Reason: sob) Qty: 0 0RF
guaifenesin 600 mg Tablet Extended Release 12hr
600 mg PO Q12 Qty: 60 0RF
cefdinir 300 mg capsule
300 mg PO BID Qty: 14 0RF
doxycycline hyclate 100 mg capsule
100 mg PO BID Qty: 14 0RF
Continued
ascorbic acid (vitamin C) [Vitamin C] 1,000 mg Tablet
1,000 mg PO BID
prednisone 10 mg Tablet
10 mg PO DAILY
azithromycin 250 mg Tablet
250 mg PO MOWEFR
zinc sulfate 50 mg zinc (220 mg) Tablet
50 mg PO HS
potassium 99 mg Tablet
400 mg PO DAILY
naproxen sodium [Aleve] 220 mg Tablet
220 mg PO BIDPRN PRN (Reason: mild pain)
vitamin B complex Tablet
1 tab PO BID
albuterol sulfate 90 mcg/actuation Hfa Aerosol Inhaler
2 puff INHALATION R Q6HPRN PRN (Reason: sob)
acetylcysteine [NAC] 600 mg Capsule
600 mg PO DAILY
cholecalciferol (vitamin D3) [Vitamin D3] 50 mcg (2,000 unit) Tablet
50 mcg PO DAILY
Trelegy Ellipta 200-62.5-25 mcg Blister With Device
1 inh INHALATION R DAILY
quercetin 500 mg Capsule
500 mg PO DAILY
Discontinued
lisinopril-hydrochlorothiazide 20-12.5 mg Tablet
1 tab PO DAILY
Discharge Orders:
Discharge Patient (As Directed); Ordered 07/31/24
Ordered By: Karl Glover
Discharge Date and Time
Print Language: TRISTANIAN
--- NOTE | 2024-07-31 11:26 | PN.CDI ---
Addendum entered and electronically signed by Karl Glover MD 07/31/24 11:56:
no sepsis
Original Note:
CDI
- -
CDI:
Physician Documentation Request
Admit Date: 07/29/24 19:55
Dear Doctor Belen,
Patient admitted with postobstructive pneumonia.
07/30 Pulmonary note, 'Leukocytosis likely due to sepsis....'
07/31 PN, 'Cefepime/Vanoc.'
On admission, WBC 20.9 and HR> 90.
Please clarify which of the following most accurately describes the status of the patient's infection:
Sepsis, POA
Post obstructive pneumonia only
Other
Sepsis
- Systemic manifestations of infection, with 2 or more SIRS criteria which include:
- Fever >100.4 degrees F or hypothermia < 96.8 degrees F
- Leukocytosis - WBC > 12,000 or leukopenia - WBC < 4,000 or > 10% bands
- Tachycardia > 90 beats per minute
- Tachypnea - RR > 20 breaths per minute or PaCO2 , 32mmHg
Source: Merck Manual 2013
- Indicate the known or suspected organism
- Indicate the known or suspected underlying infection, such as pneumonia
Localized Infection Only, Without Systemic Illness
- indicate the site/source, such as pneumonia
Other
Unable to Determine
Use of terms such as suspected, likely, concern for, or probable (associated with a specific diagnosis that is being evaluated, monitored, or treated as if it exists) are acceptable and can be coded in the inpatient setting, when documented at the
time of discharge.
Thank you,
Paulette WINTER,RN,CCDS
CDI Specialist
Available via tiger text
Please use your independent medical judgment in providing your response.
[2024-07-31 12:45] VITALS: BP 115/71
== END 2024-07-31 13:15 | disposition home or self-care (01) | DRG 190 ==
LOC: 4 WEST ACU 19:55
PROVIDERS: Nurse Practitioner; ADMITTING PHYSICIAN Internal Medicine; ATTENDING PHYSICIAN Internal Medicine; EMERGENCY PHYSICIAN Emergency Medicine; FAMILY PHYSICIAN Family Medicine; OTHER PHYSICIAN Internal Medicine Critical Care Medicine
DX: J44.1 Chronic obstructive pulmonary disease with (acute) exacerbation (principal); J18.8 Other pneumonia, unspecified organism; J98.11 Atelectasis; J44.0 Chronic obstructive pulmonary disease with (acute) lower respiratory infection; R63.4 Abnormal weight loss; J43.2 Centrilobular emphysema; R74.01 Elevation of levels of liver transaminase levels; G43.909 Migraine, unspecified, not intractable, without status migrainosus; D64.9 Anemia, unspecified; I12.9 Hypertensive chronic kidney disease with stage 1 through stage 4 chronic kidney disease, or unspecified chronic kidney disease; N18.31 Chronic kidney disease, stage 3a; D72.828 Other elevated white blood cell count; T38.0X5A Adverse effect of glucocorticoids and synthetic analogues, initial encounter; R19.7 Diarrhea, unspecified; F17.210 Nicotine dependence, cigarettes, uncomplicated; Z86.16 Personal history of COVID-19; Z11.52 Encounter for screening for COVID-19; Z80.1 Family history of malignant neoplasm of trachea, bronchus and lung; Z82.5 Family history of asthma and other chronic lower respiratory diseases; Z79.2 Long term (current) use of antibiotics; Z79.52 Long term (current) use of systemic steroids; Z79.51 Long term (current) use of inhaled steroids; Z68.22 Body mass index [BMI] 22.0-22.9, adult; Z88.2 Allergy status to sulfonamides; Z79.899 Other long term (current) drug therapy
CPT/HCPCS: 71046; 71260; 76700; 80048; 80053; 80202; 82248; 82550; 82977; 85025; 85027; 86704; 86706; 86803; 87070; 87205; 87340; 87449; 87502; 87641; 87811; 87899; 94640; 96361; 96374; 96375; 97116; 97162; 99285; 99406; Q9967

== ENCOUNTER 2024-08-03 14:25 | Day surgery (SDC) | payer MEDICARE, OTHER, SELFPAY ==
[2024-08-03] MEDS: DUONEB 3 ML INH (14:50)
[2024-08-03 15:00] VITALS: BP 146/90; BMI 21.9
[2024-08-03 16:15] VITALS: BP 146/90
[2024-08-03 16:23] VITALS: BP 146/90
--- NOTE | 2024-08-03 17:20 | SUR.PHASEI ---
02 sats low in PACU, pulmonary hygiene and I.S instruction given. [facility] therapist called to give patient boaz gee, per Dr Bailey. Neelam Adamson RN BSN.
[2024-08-03 17:38] VITALS: BP 100/67
--- NOTE | 2024-08-03 17:46 | SUR.PHASEI ---
Permission from DR de jesus and anesthesia to send patient to [facility] with sat on [facility] of 98% Neelam lucas RN BSN.
[2024-08-03 18:10] VITALS: BP 128/72
== END 2024-08-03 18:20 | disposition home or self-care (01) ==
LOC: SDS 14:25
PROVIDERS: ATTENDING PHYSICIAN Internal Medicine Critical Care Medicine
DX: C34.11 Malignant neoplasm of upper lobe, right bronchus or lung (principal); J98.11 Atelectasis
CPT/HCPCS: 31629; 31623; 31624; 31654; 88173; 88305; 81459; 87015; 87070; 87102; 87116; 87205; 88112; 88341; 88342; 94640